=== PATIENT | female | born 1970 | race Two or more races ===

== ENCOUNTER 2019-03-29 20:08 | Emergency (ER) | payer OTHER ==
[~2019-03-29] VITALS: Ht 160 cm; Wt 90.8 kg
--- NOTE | 2019-03-29 20:32 | NUR ---
DAVID ROQUE AT .
[2019-03-29] MEDS ORDERED: ALBUTEROL/IPRATROPIUM 2.5MG/0.5MG, 3 ML ONE (20:44)
--- NOTE | 2019-03-29 20:46 | NUR ---
rt here for breathing tx
[2019-03-29] MEDS ORDERED: ALBUTEROL SULFATE 2.5 MG/3 ML NPPB ONE (21:00)
[2019-03-29 21:43] VITALS: BP 140/78
--- NOTE | 2019-03-29 21:44 | NUR ---
D/C INSTRUCTIONS, MEDS, & F/U APPT RV'WD WITH PT, SHE VERBALIZES UNDERSTANDING. (PT REQUESTED TO HAVE SON TRANSLATE IN SWEDISH.) RX GIVEN X1. PT AMBULATED OUT OF ED WITH SON WITHOUT DIFFICULTY.
== END 2019-03-29 21:46 | disposition home or self-care (01) ==
LOC: ED 21:15
DX: J98.01 Acute bronchospasm (principal)
CPT/HCPCS: 71046; 93005; 94640; 99283